=== PATIENT | male | born 1980 | race Two or more races ===

== ENCOUNTER 2019-08-07 16:58 | Emergency (ER) | payer MEDICAID, OTHER ==
[~2019-08-07] VITALS: Ht 165.1 cm; Wt 99.8 kg
[2019-08-07 19:12] VITALS: BP 121/80
[2019-08-07] MEDS ORDERED: TETANUS-DIPTH-ACEL PERTUSSIS 0.5ML SYR Tdap IM ONE (19:30)
== END 2019-08-07 20:58 | disposition home or self-care (01) ==
LOC: ER 16:58
DX: S51.812A Laceration without foreign body of left forearm, initial encounter (principal); W26.8XXA Contact with other sharp object(s), not elsewhere classified, initial encounter; Y93.89 Activity, other specified; Y92.89 Other specified places as the place of occurrence of the external cause; Y99.8 Other external cause status
CPT/HCPCS: 90471; 90715